=== PATIENT | female | born 1990 | race Caucasian/White ===

== ENCOUNTER 2019-01-19 12:23 | Emergency (ER) | payer MEDICARE, OTHER ==
[~2019-01-19] VITALS: Ht 154.9 cm; Wt 109.1 kg
[~2019-01-19 12:23] MED LIST: LEVO150 PO
[2019-01-19] MEDS ORDERED: GUAI100S72 PO (12:30)
[2019-01-19 14:54] VITALS: BP 112/76
== END 2019-01-19 14:55 | disposition home or self-care (01) ==
LOC: EMS 12:23
DX: J40 Bronchitis, not specified as acute or chronic (principal); E03.9 Hypothyroidism, unspecified